=== PATIENT | male | born 1960 | race Caucasian/White ===

== ENCOUNTER 2020-09-29 13:11 | Day surgery (SDC) | payer OTHER ==
[2020-09-29] MEDS ORDERED: Xylocaine-Mpf 2% 5 Ml Vial IJ ONE (13:12)
[2020-09-29] MEDS ORDERED: Ketamine HCl 50 MG/ML ONE (15:33)
[2020-09-29] MEDS ORDERED: DIPRIVAN 200 MG/20 ML IV ONE (15:33)
[2020-09-29] MEDS ORDERED: Lactated Ringers 1,000 ML IV ONE (16:23)
--- NOTE | 2020-09-29 16:46 | XRAY ---
Indication: Bilateral L4-S1 MBB. Intraoperative fluoroscopy provided for 16 seconds. Single digital spot image submitted for interpretation demonstrates posterior needle tips projecting over the expected left and right L4-S1 nerve roots. Correlate with intraoperative findings/report.
--- NOTE | 2020-09-29 16:51 | XRAY ---
16 seconds fluoroscopy time in surgery for bilateral L4-S1 MBB.
== END 2020-09-29 15:35 | disposition home or self-care (01) ==
LOC: SDC-PAIN 13:11
PROVIDERS: ATTEND Psychiatry & Neurology Pain Medicine
DX: M47.816 Spondylosis without myelopathy or radiculopathy, lumbar region (principal); I10 Essential (primary) hypertension; J44.9 Chronic obstructive pulmonary disease, unspecified; M10.9 Gout, unspecified; F41.9 Anxiety disorder, unspecified; Z79.899 Other long term (current) drug therapy
CPT/HCPCS: 64493; 64494; 72020; 77002; J2704

== ENCOUNTER 2020-11-17 10:45 | Day surgery (SDC) | payer OTHER ==
[2020-11-17] MEDS ORDERED: BUPIVACAINE 0.5% VIAL IJ ONE (10:46)
[2020-11-17] MEDS ORDERED: DIPRIVAN 200 MG/20 ML IV ONE (12:23)
--- NOTE | 2020-11-17 13:21 | XRAY ---
Indication: Bilateral L4-S1 MBB. Intraoperative fluoroscopy provided for 21 seconds. Single digital spot image submitted for interpretation demonstrates posterior needle tips projecting over the expected left and right L4-S1 nerve roots. Correlate with intraoperative findings/report.
--- NOTE | 2020-11-17 13:28 | XRAY ---
21 seconds fluoroscopy time in surgery for bilateral L4-S1 MBB.
[2020-11-17] MEDS ORDERED: Lactated Ringers 1,000 ML IV ONE (16:04)
== END 2020-11-17 12:53 | disposition home or self-care (01) ==
LOC: SDC-PAIN 10:45
PROVIDERS: ATTEND Psychiatry & Neurology Pain Medicine
DX: M47.816 Spondylosis without myelopathy or radiculopathy, lumbar region (principal); I10 Essential (primary) hypertension; J44.9 Chronic obstructive pulmonary disease, unspecified; M19.90 Unspecified osteoarthritis, unspecified site; M10.9 Gout, unspecified; I34.1 Nonrheumatic mitral (valve) prolapse; F41.9 Anxiety disorder, unspecified; Z79.899 Other long term (current) drug therapy
CPT/HCPCS: 72020; 77002; J2704

== ENCOUNTER 2021-01-05 11:02 | Day surgery (SDC) | payer OTHER ==
[2021-01-05] MEDS ORDERED: BUPIVACAINE 0.5% VIAL IJ ONE (11:03)
[2021-01-05] MEDS ORDERED: Depo-Medrol 40 MG/ML IM ONE (11:03)
[2021-01-05] MEDS ORDERED: Xylocaine 1% Vial 30 ML PF IJ ONE (11:03)
[2021-01-05] MEDS ORDERED: DIPRIVAN 200 MG/20 ML IV ONE (12:12)
[2021-01-05] MEDS ORDERED: Lactated Ringers 1,000 ML IV ONE (16:29)
--- NOTE | 2021-01-06 11:34 | XRAY ---
33 seconds fluoroscopy time in surgery for right L4-S1 RFA.
== END 2021-01-05 12:50 | disposition home or self-care (01) ==
LOC: SDC-PAIN 11:02
PROVIDERS: ATTEND Psychiatry & Neurology Pain Medicine
DX: M47.816 Spondylosis without myelopathy or radiculopathy, lumbar region (principal); I10 Essential (primary) hypertension; J44.9 Chronic obstructive pulmonary disease, unspecified; M19.90 Unspecified osteoarthritis, unspecified site; F41.9 Anxiety disorder, unspecified; Z79.899 Other long term (current) drug therapy
CPT/HCPCS: 64635; 64636; 72100; 77002; J1030; J2001; J2704

== ENCOUNTER 2021-01-19 11:39 | Day surgery (SDC) | payer OTHER ==
[2021-01-19] MEDS ORDERED: DIPRIVAN 200 MG/20 ML IV ONE (11:40)
[2021-01-19] MEDS ORDERED: BUPIVACAINE 0.5% VIAL IJ ONE (11:40)
[2021-01-19] MEDS ORDERED: Xylocaine 1% Vial 30 ML PF IJ ONE (11:40)
[2021-01-19] MEDS ORDERED: Depo-Medrol 40 MG/ML IM ONE (11:40)
--- NOTE | 2021-01-19 14:20 | XRAY ---
Indication: Left L4-S1 RFA. Intraoperative fluoroscopy provided for 17 seconds. 3 digital spot image submitted for interpretation demonstrates posterior needle tips projecting over the expected left L4-L5 and S1 nerve roots. Correlate with intraoperative findings/report.
--- NOTE | 2021-01-19 15:03 | XRAY ---
17 seconds of fluoroscopy was used in surgery for a left L4-L5 and L5-S1 RFA.
[2021-01-19] MEDS ORDERED: Lactated Ringers 1,000 ML IV ONE (15:33)
== END 2021-01-19 13:55 | disposition home or self-care (01) ==
LOC: SDC-PAIN 11:39
PROVIDERS: ATTEND Psychiatry & Neurology Pain Medicine
DX: M47.817 Spondylosis without myelopathy or radiculopathy, lumbosacral region (principal); I10 Essential (primary) hypertension; J44.9 Chronic obstructive pulmonary disease, unspecified; M10.9 Gout, unspecified; Z79.899 Other long term (current) drug therapy
CPT/HCPCS: 64635; 64636; 72100; 77002; J1030; J2001; J2704

== ENCOUNTER 2021-03-02 12:56 | Day surgery (SDC) | payer OTHER ==
[2021-03-02] MEDS ORDERED: Depo-Medrol 40 MG/ML IM ONE (12:57)
[2021-03-02] MEDS ORDERED: BUPIVACAINE 0.5% VIAL IJ ONE (12:57)
[2021-03-02] MEDS ORDERED: Lactated Ringers 1,000 ML IV ONE (13:50)
[2021-03-02] MEDS ORDERED: DIPRIVAN 200 MG/20 ML IV ONE (14:10)
--- NOTE | 2021-03-02 17:03 | XRAY ---
18 seconds of fluoroscopy was used in a bilateral sacroiliac joint injection.
--- NOTE | 2021-03-04 09:17 | XRAY ---
Indication: Bilateral sacroiliac joint injections. Intraoperative fluoroscopy was provided for 18 seconds. 2 lateral digital spot images submitted for interpretation demonstrate posterior needle tips projected over the sacroiliac joints. Correlate with intraoperative findings/report.
== END 2021-03-02 14:35 | disposition home or self-care (01) ==
LOC: SDC-PAIN 12:56
PROVIDERS: ATTEND Psychiatry & Neurology Pain Medicine
DX: M46.1 Sacroiliitis, not elsewhere classified (principal); Z79.899 Other long term (current) drug therapy
CPT/HCPCS: 27096; 72202; 77002; J1030; J2704; G0260